=== PATIENT | male | born 1970 ===

== ENCOUNTER 2017-03-31 14:28 | Emergency (ER) | payer MEDICAID ==
[2017-03-31 14:37] VITALS: BP 130/81; PULSE 88; RESP 19; TEMP 98.5; O2SAT 100
--- NOTE | 2017-03-31 14:59 | ED PDOC ---
Upper Extremity Pain/Injury Time Seen by Provider: 03/31/17 14:38 Chief Complaint (Nursing): Upper Extremity Problem/Injury Chief Complaint (Provider): Upper Extremity Problem/Injury History Per: Patient History/Exam Limitations: no limitations Onset/Duration Of Symptoms: Days (x1 month) Current Symptoms Are (Timing): Still Present Additional Complaint(s): Sukhwinder Calhoun is a 46 year old male who presents to the emergency department with a complaint of left elbow pain associated with swelling ongoing for 1 month. Denied further medical complaints. 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 PMD: none provided Past Medical History Reviewed: Historical Data, Nursing Documentation, Vital Signs Vital Signs: Last Vital Signs Temp 98.5 F 03/31/17 14:35 Pulse 88 03/31/17 14:35 Resp 19 03/31/17 14:35 BP 130/81 03/31/17 14:35 Pulse Ox 100 03/31/17 14:35 - Medical History PMH: Diabetes - Surgical History Surgical History: Cholecystectomy - Family History Family History: States: Unknown Family Hx - Immunization History Hx Influenza Vaccination: No Hx Pneumococcal Vaccination: No - Home Medications Home Medications: Ambulatory Orders Medication Instructions Recorded Ibuprofen [Motrin] 600 mg PO Q6 #20 tab 03/31/17 metFORMIN [glucOPHAGE] 500 mg PO BID #30 tab 03/31/17 - Allergies Allergies/Adverse Reactions: Allergies Allergy/AdvReac Type Severity Reaction Status Date / Time No Known Allergies Allergy Verified 01/14/17 06:53 Review of Systems ROS Statement: Except As Marked, All Systems Reviewed And Found Negative Musculoskeletal: Positive for: Arm Pain (left elbow), Other (left elbow swelling ) Physical Exam - Reviewed Nursing Documentation Reviewed: Yes Vital Signs Reviewed: Yes - Physical Exam Appears: Positive for: Well, Non-toxic, No Acute Distress Head Exam: Positive for: ATRAUMATIC, NORMAL INSPECTION, NORMOCEPHALIC Extremity: Positive for: Tenderness (mild fluctuant, non-erythematous mass over left olecranon inhibiting flexion and extension due to pain). 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 Pt advised to follow up with Ortho returnt o ED with any concerns Finger stick 231. Pt given Refill of Metformin Scribe Attestation: Documented by Ambar William, acting as a scribe for Chasity Webber. Provider Scribe Attestation: All medical record entries made by the Scribe were at my direction and personally dictated by me. I have reviewed the chart and agree that the record accurately reflects my personal performance of the history, physical exam, medical decision making, and the department course for this patient. I have also personally directed, reviewed, and agree with the discharge instructions and disposition. Disposition - Clinical Impression Clinical Impression: Diabetes, Olecranon bursitis - Patient ED Disposition Is Patient to be Admitted: No - Disposition Referrals: [facility] [place] [Outside] [facility] [Outside] Abe Washington III, MD [Staff Provider] - Disposition: Routine/Home Disposition Time: 16:14 Condition: STABLE Prescriptions: Ibuprofen [Motrin] 600 mg PO Q6 #20 tab metFORMIN [glucOPHAGE] 500 mg PO BID #30 tab Instructions: Metformin (By mouth), Elbow Bursitis (ED) Forms: [facility] (Albanian) Print Language: SAMI
--- NOTE | 2017-03-31 16:31 | RAD ---
PROCEDURE: Radiographs of the left elbow. HISTORY: Pain and swelling COMPARISON: No prior. FINDINGS: BONES: Bone alignment and mineralization are normal. No acute fracture. JOINTS: Normal. No osteoarthritis. SOFT TISSUES: Normal. JOINT EFFUSION: None. OTHER FINDINGS: None IMPRESSION: No acute fracture or dislocation.
== END 2017-03-31 16:28 | disposition home or self-care (01) ==
LOC: H.ER 14:28
DX: M70.22 Olecranon bursitis, left elbow (principal); E11.9 Type 2 diabetes mellitus without complications; Z79.84 Long term (current) use of oral hypoglycemic drugs